=== PATIENT | female | born 1975 | race Two or more races ===

== ENCOUNTER 2020-06-09 06:38 | Emergency (ER) | payer OTHER ==
[~2020-06-09] VITALS: Ht 160 cm; Wt 76.4 kg
--- NOTE | 2020-06-09 06:55 | NUR ---
INITIAL PT CONTACT. PT PRESENTS TO THE ED C/O URINARY RETENTION. PT ACCOMPAINED BY DAUGHTER. PT HAD PLASTIC SURGERY, TUMMY TUCK AND LIPOSUCTION, ON SUNDAY. SURGERY WAS PERFORMED IN [place]. PT WAS ABLE TO VOID FOLLOWING THE SURGERY AND D/C HOME. RETENTION BEGAN YESTERDAY PER PT "COULDN'T TAKE THE PAIN ANYMORE". PT SITTING UPRIGHT ON HOSPITAL BED, NAD, VSS. CALL LIGHT IN REACH. ERP AT BEDSIDE.
--- NOTE | 2020-06-09 07:05 | NUR ---
BEDSIDE US DONE BY DR. CORRALES SHOWING SIGNIFICANT URINE RETAINED IN BLADDER. RAVI CATH INSERTED PER MD ORDER. PT REPORTS IMMEDIATE RELIEF FOLLOWING INSERTION.
[2020-06-09 07:34] LABS: BASOPHILS % (AUTO) 0 % (0-1); EOSINOPHILS % (AUTO) 0 % (1-7); LYMPHOCYTES % (AUTO) 12 % (22-44); MEAN CORPUSCULAR HEMOGLOBIN 30.9 pg (27.0-34.8); MEAN CORPUSCULAR HGB CONC 33.7 g/dL (32.4-35.8); MEAN PLATELET VOLUME 7.6 fL (7.4-10.4); MONOCYTES % (AUTO) 7 % (2-9); NEUTROPHILS % (AUTO) 80 % (42-75); PLATELET COUNT 311 x10^3/uL (130-400); RED BLOOD COUNT 3.62 x10^6/uL (3.82-5.3); RED CELL DISTRIBUTION WIDTH 13.2 % (9.6-15.2)
[2020-06-09 07:41] LABS: MD NO
[2020-06-09 07:45] LABS: MICROSCOPIC INDICATED
[2020-06-09 07:46] LABS: ALBUMIN 3.1 g/dL (3.4-5.0); ANION GAP 5 mmol/L (5-15); CALCIUM 7.9 mg/dL (8.5-10.1); CHLORIDE 109 mmol/L (98-107); CREATININE 0.84 mg/dL (0.55-1.02)
--- NOTE | 2020-06-09 08:01 | NUR ---
PT SITTING UPRIGHT ON GURNEY WITH EYES CLOSED, DAUGHTER REMAINS AT BEDSIDE. PT STATES "I FEEL A LOT BETTER NOW". PT DENIES ANY NEEDS AT THIS TIME. CALL LIGHT AND PERSONAL BELONGINGS WITHIN REACH. VSS, NAD. WILL CONTINUE TO MONITOR.
--- NOTE | 2020-06-09 08:40 | NUR ---
Patient given discharge instructions and they have confirmed that they understand the instructions. Patient ambulatory with steady gait with use of personal walker.
[2020-06-09 08:42] VITALS: BP 120/74
== END 2020-06-09 08:44 | disposition home or self-care (01) ==
LOC: ED 08:01
DX: R33.0 Drug induced retention of urine (principal); N99.89 Other postprocedural complications and disorders of genitourinary system; K59.00 Constipation, unspecified; R10.9 Unspecified abdominal pain
CPT/HCPCS: 36415; 51702; 80048; 81001; 82040; 85025; 99284

== ENCOUNTER 2020-06-12 08:28 | Emergency (ER) | payer OTHER ==
[~2020-06-12] VITALS: Ht 157.5 cm; Wt 73.2 kg
[2020-06-12 08:38] VITALS: BP 142/78
[2020-06-12] MEDS ORDERED: CEFTRIAXONE 250 MG ONE (08:55)
[2020-06-12] MEDS ORDERED: OXYcodone/APAP 5/325MG TABLET ONE (08:56)
[2020-06-12] MEDS ORDERED: AZITHROMYCIN 250 MG TABLET ONE (08:56)
[2020-06-12] MEDS ORDERED: AZITHROMYCIN 500 MG TABLET PO ONE (09:00)
[2020-06-12] MEDS ORDERED: CEFTRIAXONE 250 MG IM ONE (09:00)
[2020-06-12] MEDS ORDERED: OXYcodone/APAP 5/325MG TABLET PO ONE (09:00)
== END 2020-06-12 10:35 | disposition home or self-care (01) ==
LOC: ED 08:55
DX: R33.9 Retention of urine, unspecified (principal); Z98.890 Other specified postprocedural states
CPT/HCPCS: 99282

== ENCOUNTER 2020-06-13 03:47 | Emergency (ER) | payer OTHER ==
[~2020-06-13] VITALS: Ht 162.6 cm; Wt 74.9 kg
--- NOTE | 2020-06-13 03:52 | NUR ---
PT CALLED FOR TRIAGE. NA X 1
[2020-06-13 03:54] VITALS: BP 144/89
[2020-06-13 04:47] LABS: MICROSCOPIC INDICATED
[2020-06-13] MEDS ORDERED: PHENAZOPYRIDINE 200 MG TABLET ONE (05:20)
[2020-06-13] MEDS ORDERED: OXYcodone/APAP 5/325MG TABLET ONE (05:21)
[2020-06-13] MEDS ORDERED: PHENAZOPYRIDINE 200 MG TABLET PO ONE (05:30)
[2020-06-13] MEDS ORDERED: OXYcodone/APAP 5/325MG TABLET PO ONE (05:30)
== END 2020-06-13 05:30 | disposition home or self-care (01) ==
LOC: ED 04:12
DX: N30.00 Acute cystitis without hematuria (principal)
CPT/HCPCS: 81001; 87086; 99283